=== PATIENT | female | born 1970 | race Caucasian/White ===

== ENCOUNTER 2017-01-11 02:04 | Emergency (ER) | payer MEDICAID ==
[~2017-01-11] VITALS: Ht 170.2 cm; Wt 68.5 kg
[2017-01-11 02:20] VITALS: Ht 170.2 cm; Wt 68.5 kg
[2017-01-11] MEDS ORDERED: LIDOCAINE 2% VISC 15 ML CUP PO ONE (03:30)
--- NOTE | 2017-01-11 04:20 | ERD ---
ER Documentation Chief Complaint Date/Time DATE: 01/11/17 TIME: 04:18 Chief Complaint Foreign body in ear HPI 39-year-old female presents with a foreign body sensation in her left ear that woke her up out of sleep tonight. She describes onset there is something moving fluttering in her left ear causing pain. ROS All systems reviewed and are negative except as per history of present illness. Medications Home Meds Active Scripts Ofloxacin Otic (Ofloxacin Otic) 5 Ml Drops, 5 DROP LEFT EAR DAILY for 5 Days, # 1 BOTTLE Prov:SULLY ROWLAND PA-C 01/11/17 Carbamide Peroxide* (Debrox*) 6.5% - 15 Ml Drops, 10 DROP LEFT EAR BID for 5 Days, BOTTLE Prov:SULLY ROWLAND PA-C 01/11/17 Allergies Allergies: Coded Allergies: No Known Allergy (Unverified , 01/11/17) PMhx/Soc Medical and Surgical Hx: pt denies Medical Hx, pt denies Surgical Hx Hx Alcohol Use: No Hx Substance Use: No Hx Tobacco Use: No Smoking Status: Never smoker Physical Exam Vitals Vital Signs Date Time Temp Pulse Resp B/P Pulse Ox O2 Delivery O2 Flow Rate FiO2 01/11/17 02:20 97.6 77 17 137/72 99 Physical Exam General: Well-developed, well-nourished. The patient appears in no acute distress. HEENT: Head is normocephalic, atraumatic. No scleral icterus. Neck: Supple. Nontender. Left ear canal has an insect that is moving. Lungs: Clear to auscultation. Normal air movement. Heart: Regular rate and rhythm. S1 and S2 are normal. No murmurs, gallops, or rubs. Abdomen: Nondistended. Extremities: No clubbing or cyanosis. Moving extremities x 4. No weakness. Neurologic: Alert and oriented 3. No focal deficits. Normal speech and gait. Skin: Normal turgor. No rash or lesions. Results 24 hrs Current Medications Medications (Trade) Dose Ordered Sig/Kristopher Route PRN Reason Start Time Stop Time Status Last Admin Dose Admin Lidocaine (Xylocaine (Viscous)) 15 ml ONCE ONCE PO 01/11/17 03:30 01/11/17 03:31 DC 01/11/17 03:19 Procedures/MDM ED course: There is an insect that we applied Viscous Lidocaine in the ear canal, patient states that there is no longer any movement. Copious amount of irrigation was done, hydrogen peroxide was applied to the left ear.Alligator forceps were used to remove the large foreign body, there is still residual small brown foreign body seen in the ear canal just prior to the tympanic membrane. TM is nonruptured, there is no hemotympanum. Medical decision makin-year-old female presents with an insect that is in her left ear, Most of the foreign body was removed, patient will be sent home with Debrox and prophylactic antibacterial eardrops. There is no evidence of a TM rupture, patient was reassured that the foreign body will likely fall out on its own slowly with the Debrox. Departure Diagnosis: Primary Impression: Retained foreign body Condition: SULLY Dangelo PA-C Jan 11, 2017 04:20
[2017-01-11] MEDS ORDERED: CARB15DR50 LEFT EAR (05:42)
[2017-01-11] MEDS ORDERED: OFLO5DRO7 LEFT EAR (05:42)
[2017-01-11 05:45] VITALS: BP 142/76; PULSE 69; RESP 19; TEMP 97.6
== END 2017-01-11 05:45 | disposition home or self-care (01) ==
LOC: FTE 02:04
DX: T16.2XXA Foreign body in left ear, initial encounter (principal); X58.XXXA Exposure to other specified factors, initial encounter; Y92.9 Unspecified place or not applicable
CPT/HCPCS: 69200; Z7502; Z7610